=== PATIENT | female | born 2000 | race Caucasian/White ===

== ENCOUNTER 2019-01-15 14:11 | Emergency (ER) | payer OTHER ==
[~2019-01-15] VITALS: Ht 177.8 cm; Wt 90.7 kg
--- NOTE | 2019-01-15 15:16 | Diagnostic Imaging Report ---
Exam: Left clavicle History: Shoulder injury, rule out fracture Comparison: None. Findings: There is normal bone mineralization. No acute, displaced fracture or dislocation. Joint spaces preserved. No abnormal soft tissue calcification or soft tissue defect. No soft tissue swelling. Impression: 1. No acute abnormalities. Signed by: Dr. Ryan Herrera M.D. on 01/15/2019 3:13 PM
--- NOTE | 2019-01-15 15:17 | Diagnostic Imaging Report ---
EXAMINATION: Left shoulder internal and external rotation. CLINICAL HISTORY: Status post fall. COMPARISON: None. . Discussion: The osseous structures are intact without evidence of acute, displaced fracture or dislocation. No osteolytic or osteoblastic lesions. There is no evidence of a.c. separation. The glenohumeral joint is within normal limits. The soft tissues are normal. IMPRESSION: 1. Unremarkable left shoulder films. Signed by: Dr. Ryan Herrera M.D. on 01/15/2019 3:13 PM
== END 2019-01-15 19:21 | disposition home or self-care (01) ==
LOC: ER 14:11
DX: M25.512 Pain in left shoulder (principal); S43.402A Unspecified sprain of left shoulder joint, initial encounter; S40.012A Contusion of left shoulder, initial encounter; W01.0XXA Fall on same level from slipping, tripping and stumbling without subsequent striking against object, initial encounter; Y93.51 Activity, roller skating (inline) and skateboarding; Y92.331 Roller skating rink as the place of occurrence of the external cause
CPT/HCPCS: 99283